=== PATIENT | male | born 1985 | race African-American/Black ===

== ENCOUNTER 2018-08-30 18:26 | Emergency (ER) | payer OTHER ==
[~2018-08-30] VITALS: Ht 175.3 cm; Wt 68.2 kg
[2018-08-30] MEDS ORDERED: DEPRESSION MED (18:32)
[2018-08-30] MEDS ORDERED: diphenhydrAMINE INJ 50MG/ML VIAL (J1200) IV STA (19:34)
[2018-08-30] MEDS ORDERED: KETOROLAC 30 MG/ML VIAL (J1885) IV ONE (19:45)
[2018-08-30] MEDS ORDERED: NS 1,000 ML IV ONE (19:45)
[2018-08-30] MEDS ORDERED: METOCLOPRAMIDE INJ 10MG/2ML VIAL (J2765) IV ONE (19:45)
[2018-08-30 21:36] VITALS: BP 123/76
== END 2018-08-30 22:10 | disposition home or self-care (01) ==
LOC: M ED 18:26
DX: G43.909 Migraine, unspecified, not intractable, without status migrainosus (principal); F32.9 Major depressive disorder, single episode, unspecified
CPT/HCPCS: 96374; 96375; 99284; J1200; J1885; J2765